=== PATIENT | male | born 2000 | race Two or more races ===

== ENCOUNTER 2021-06-07 00:33 | Emergency (ER) | payer OTHER ==
[~2021-06-07] VITALS: Ht 167.6 cm; Wt 86.2 kg
[2021-06-07 00:47] VITALS: BP 121/61
[2021-06-07] MEDS ORDERED: IBUPROFEN 800 MG TAB PO ONE (01:15)
== END 2021-06-07 01:49 | disposition home or self-care (01) ==
LOC: ER 00:33
DX: L60.0 Ingrowing nail (principal)

== ENCOUNTER 2021-06-14 14:47 | Emergency (ER) | payer OTHER ==
[~2021-06-14] VITALS: Ht 167.6 cm; Wt 86.6 kg
[2021-06-14 16:08] VITALS: BP 122/69
== END 2021-06-14 16:49 | disposition home or self-care (01) ==
LOC: ER 14:47
DX: S63.501A Unspecified sprain of right wrist, initial encounter (principal); W22.01XA Walked into wall, initial encounter; Y93.89 Activity, other specified; Y92.89 Other specified places as the place of occurrence of the external cause; Y99.8 Other external cause status
CPT/HCPCS: 73110

== ENCOUNTER 2021-11-13 23:54 | Emergency (ER) | payer OTHER ==
[~2021-11-13] VITALS: Ht 167.6 cm; Wt 63.5 kg
[2021-11-14 02:03] LABS: Basophils # (auto) 0.1 10 ^3/uL (0-0.2); Basophils % (auto) 0.7 % (0.0-2.0); Eosinophils # (auto) 0.3 10 ^3/uL (0-0.8); Eosinophils % (auto) 2.6 % (0.0-7.0); Hematocrit 43.6 % (41.0-53.0); Hemoglobin 15.2 g/dL (13.5-17.5); Lymphocytes # (auto) 3.5 10 ^3/uL (0.4-5.4); Lymphocytes % (auto) 27.1 % (10.0-50.0); Mean Corpuscular Hemoglobin 30.1 pg (28.0-32.0); Mean Corpuscular Hgb Conc. 34.9 g/dL (32.0-36.0); Mean Corpuscular Volume 86.2 fL (80.0-100.0); Monocytes # (auto) 0.9 10 ^3/uL (0-1.3); Monocytes % (auto) 7.3 % (0.0-12.0); Neutrophils # (auto) 8.1 10 ^3/uL (1.6-8.6); Neutrophils % (auto) 62.3 % (37.0-80.0); Nucleated Red Blood Cells % 0.1 %; Red Blood Cells 5.06 10^6/uL (4.5-5.90); Red Cell Distribution Width 12.7 % (11.8-14.3)
[2021-11-14 02:05] LABS: Urine Bacteria NONE SEEN /hpf (None Seen); Urine Blood Negative /uL (Negative); Urine Mucus FEW (None Seen); Urine Specific Gravity 1.029 (1.001-1.035); Urine WBC 3 /hpf (0 - 3)
[2021-11-14 02:19] LABS: BUN/Creatinine Ratio 10.7; Calcium 9.4 mg/dL (8.5-10.1)
[2021-11-14 02:22] LABS: Bilirubin, Total 0.2 mg/dL (0.2-1.0); Total Protein 8.4 g/dL (6.4-8.2)
[2021-11-14 03:00] VITALS: BP 121/69
== END 2021-11-14 03:55 | disposition home or self-care (01) ==
LOC: ER 23:54
DX: R10.9 Unspecified abdominal pain (principal)
CPT/HCPCS: 36415; 74176; 80053; 81001; 85025

== ENCOUNTER 2023-02-09 14:38 | Emergency (ER) | payer SELFPAY ==
[~2023-02-09] VITALS: Ht 167.6 cm; Wt 88.2 kg
[2023-02-09 15:13] LABS: Basophils # (auto) 0 10 ^3/uL (0-0.2); Basophils % (auto) 0.5 % (0.0-2.0); Eosinophils # (auto) 0.3 10 ^3/uL (0-0.8); Eosinophils % (auto) 2.7 % (0.0-7.0); Hemoglobin 15.4 g/dL (13.5-17.5); Lymphocytes % (auto) 19.4 % (10.0-50.0); Mean Corpuscular Hemoglobin 29.6 pg (28.0-32.0); Mean Corpuscular Hgb Conc. 34.2 g/dL (32.0-36.0); Mean Corpuscular Volume 86.4 fL (80.0-100.0); Monocytes # (auto) 0.7 10 ^3/uL (0-1.3); Monocytes % (auto) 6.9 % (0.0-12.0); Neutrophils # (auto) 7.3 10 ^3/uL (1.6-8.6); Neutrophils % (auto) 70.5 % (37.0-80.0); Nucleated Red Blood Cells % 0.1 %; Red Blood Cells 5.21 10^6/uL (4.5-5.90); Red Cell Distribution Width 13.2 % (11.8-14.3); White Blood Cell 10.3 10^3/uL (4.4-10.8)
[2023-02-09 15:29] LABS: Potassium 3.7 mmol/L (3.5-5.1)
[2023-02-09 15:33] LABS: BUN/Creatinine Ratio 10.6 (10.0-20.0); Bilirubin, Total 0.7 mg/dL (0.2-1.0); Total Protein 8.4 g/dL (6.4-8.2)
[2023-02-09 15:36] LABS: Urine Bacteria NONE SEEN /hpf (None Seen); Urine Blood Negative /uL (Negative); Urine Mucus FEW (None Seen); Urine Specific Gravity 1.023 (1.001-1.035); Urine WBC 5 /hpf (0 - 3)
[2023-02-09] MEDS ORDERED: DICY10CA PO (16:08)
[2023-02-09 17:33] VITALS: BP 120/69; PULSE 59; RESP 18; TEMP 97.8; O2SAT 97
== END 2023-02-09 17:37 | disposition home or self-care (01) ==
LOC: ER 14:38
DX: R10.11 Right upper quadrant pain (principal)
CPT/HCPCS: 36415; 80053; 81001; 83690; 85025

== ENCOUNTER 2023-02-16 08:59 | Emergency (ER) | payer OTHER ==
[~2023-02-16] VITALS: Ht 170.2 cm; Wt 88.3 kg
[~2023-02-16 08:59] MED LIST: DICY10CA PO
[2023-02-16] MEDS ORDERED: SODIUM CHLORIDE 0.9% 1,000 ML IV ONE ×3 (10:00→10:15)
[2023-02-16 10:04] VITALS: PULSE 75; RESP 17; O2SAT 98
[2023-02-16 10:54] LABS: Basophils # (auto) 0.1 10 ^3/uL (0-0.2); Basophils % (auto) 0.6 % (0.0-2.0); Eosinophils # (auto) 0 10 ^3/uL (0-0.8); Eosinophils % (auto) 0.3 % (0.0-7.0); Hematocrit 44.4 % (41.0-53.0); Hemoglobin 15.1 g/dL (13.5-17.5); Lymphocytes # (auto) 0.4 10 ^3/uL (0.4-5.4); Mean Corpuscular Hemoglobin 29.5 pg (28.0-32.0); Mean Corpuscular Hgb Conc. 33.9 g/dL (32.0-36.0); Mean Corpuscular Volume 87.1 fL (80.0-100.0); Monocytes # (auto) 0.4 10 ^3/uL (0-1.3); Monocytes % (auto) 2.7 % (0.0-12.0); Neutrophils % (auto) 93.4 % (37.0-80.0); Nucleated Red Blood Cells % 0.1 %; Red Cell Distribution Width 13.2 % (11.8-14.3)
[2023-02-16 11:11] LABS: Calcium 8.8 mg/dL (8.5-10.1)
[2023-02-16 11:14] LABS: BUN/Creatinine Ratio 11.8 (10.0-20.0); Bilirubin, Total 0.6 mg/dL (0.2-1.0); Total Protein 8.1 g/dL (6.4-8.2)
[2023-02-16] MEDS ORDERED: cefTRIAXone 1GM/50ML D5W 50 ML IV ONE (11:15)
[2023-02-16] MEDS ORDERED: metroNIDAZOLE 500MG/100ML 100 ML IV ONE (11:15)
[2023-02-16 12:28] LABS: Urine Bacteria NONE SEEN /hpf (None Seen); Urine Blood Negative /uL (Negative); Urine Specific Gravity 1.016 (1.001-1.035); Urine WBC 1 /hpf (0 - 3)
[2023-02-16] MEDS ORDERED: METR375C PO (13:54)
[2023-02-16 14:00] VITALS: BP 111/57; PULSE 88; RESP 16; O2SAT 97
== END 2023-02-16 14:23 | disposition home or self-care (01) ==
LOC: ER 08:59
DX: K52.9 Noninfective gastroenteritis and colitis, unspecified (principal); R55 Syncope and collapse
CPT/HCPCS: 36415; 70450; 74176; 80053; 81001; 83690; 84484; 85025; 96361; 96365; 96367; 99285; J0696; J3490; J7030

== ENCOUNTER 2023-10-25 18:34 | Emergency (ER) | payer OTHER ==
[~2023-10-25] VITALS: Ht 167.6 cm; Wt 88.3 kg
[~2023-10-25 18:34] MED LIST changes: +METR375C PO
[2023-10-25 18:49] VITALS: BP 135/70; PULSE 82; RESP 16; O2SAT 100
[2023-10-25] MEDS ORDERED: IBUP-1456 PO (22:36)
== END 2023-10-25 22:42 | disposition home or self-care (01) ==
LOC: ER 18:34
DX: S76.912A Strain of unspecified muscles, fascia and tendons at thigh level, left thigh, initial encounter (principal); X50.1XXA Overexertion from prolonged static or awkward postures, initial encounter; Y93.89 Activity, other specified; Y92.89 Other specified places as the place of occurrence of the external cause; Y99.8 Other external cause status

== ENCOUNTER 2024-01-17 16:21 | Emergency (ER) | payer SELFPAY ==
[~2024-01-17] VITALS: Ht 170.2 cm; Wt 84.1 kg
[~2024-01-17 16:21] MED LIST changes: +IBUP-1456 PO
[2024-01-17 19:26] VITALS: BP 115/66; PULSE 73; RESP 12; TEMP 98; O2SAT 99
== END 2024-01-17 20:40 | disposition home or self-care (01) ==
LOC: ER 16:21
DX: S93.601A Unspecified sprain of right foot, initial encounter (principal); Z79.1 Long term (current) use of non-steroidal anti-inflammatories (NSAID); Z79.84 Long term (current) use of oral hypoglycemic drugs; Z79.899 Other long term (current) drug therapy; W22.8XXA Striking against or struck by other objects, initial encounter; Y93.89 Activity, other specified; Y92.89 Other specified places as the place of occurrence of the external cause; Y99.8 Other external cause status
CPT/HCPCS: 73630

== ENCOUNTER 2024-05-29 09:11 | Emergency (ER) | payer SELFPAY ==
[~2024-05-29] VITALS: Ht 170.2 cm; Wt 85.5 kg
--- NOTE | 2024-05-29 09:41 | ED.PDOC ---
HPI Comments 24Y M presents to ED for chief complaint palpitations with chest pain and headache. Pt states he has experienced these symptoms before after drinking 2 energy drinks. Pt states he drank a boba drink with caffeine last night and is now experiencing the chest pain and palpitations again with a mild headache. Pt drinks alcohol occasionally. Pt denies tobacco and illicit drug use. No known allergies. Chief Complaint: Palpitations Time Seen by MD: 09:24 Primary Care Provider: unknown Reviewed Notes: Medications, Allergies Allergies: Coded Allergies: NO KNOWN ALLERGIES (Unverified , 06/07/21) Home Meds Active Scripts Ibuprofen (Ibuprofen) 800 Mg Tab, 1 TAB PO TID PRN, #30 TAB 0 Refills Prov:YAYA ALEXANDER 01/17/24 Ibuprofen (Ibuprofen) 800 Mg Tab, 1 TAB PO TID PRN, #30 TAB 0 Refills Prov:YAYA ALEXANDER 10/25/23 Metronidazole (Flagyl) 375 Mg Cap, 375 MG PO TID for 7 Days, #21 CAP Prov:LESA SHULTZ MD 02/16/23 Dicyclomine Hcl (BENTYL CAPSULE) 10 Mg Cp, 1 CAP PO Q6HPRN, #30 CAP 3 Refills Prov:MANOJ MCKEON DO 02/09/23 Information Source: Patient Mode of Arrival: Ambulatory Severity: Mild Timing: Days Duration: Intermittent Location: Substernal Radiation: No Radiation Quality: Other Onset: At Rest Cardiac Risk Factors: None PE Risk Factors: None History of: Similar pain in past Modifying Factors: Nothing Associated Signs and Symptoms: Palpitations Past Medical History PAST MEDICAL HISTORY: Gallstones, UTI'S Surgical History: Denies all surgeries Family History Family History: Unknown Social History Smoker: Non-Smoker Alcohol: Occasionally Drugs: Denies Drug Use Lives In: Home Constitutional: denies: chills, diaphoresis, fatigue, fever, malaise, sweats, weakness, others EENTM: denies: blurred vision, double vision, ear bleeding, ear discharge, ear drainage, ear pain, ear ringing, eye pain, eye redness, hearing loss, mouth pain, mouth swelling, nasal discharge, nose bleeding, nose congestion, nose pain, photophobia, tearing, throat pain, throat swelling, voice changes, others Respiratory: denies: cough, hemoptysis, orthopnea, SOB at rest, shortness of breath, SOB with excertion, stridor, wheezing, others Cardiovascular: reports: chest pain, palpitations; denies: dizzy spells, diaph oresis, Dyspnea on exertion, edema, irregular heart beat, left arm pain, lightheadedness, PND, syncope, others Gastrointestinal: denies: abdomen distended, abdominal pain, blood streaked bowels, constipated, diarrhea, dysphagia, difficulty swallowing, hematemesis, melena, nausea, poor appetite, poor fluid intake, rectal bleeding, rectal pain, vomiting, others Genitourinary: denies: burning, dysuria, flank pain, frequency, hematuria, incontinence, penile discharge, penile sore, pain, testicle pain, testicle swelling, urgency, others Neurological: reports: headache; denies: dizziness, fainting, left sided numbness, left sided weakness, numbness, paresthesia, pre-existing deficit, right sided numbness, right sided weakness, seizure, speech problems, tingling, tremors, weakness, others Musculoskeletal: denies: back pain, gout, joint pain, joint swelling, muscle pain, muscle stiffness, neck pain, others Integumetry: denies: bruises, change in color, change in hair/nails, dryness, laceration, lesions, lumps, rash, wounds, others Allergic/Immunocompromised: denies: Difficulty Healing, Frequent Infections, Hives, Itching, others Hematologic/Lymphatic: denies: anemia, blood clots, easy bleeding, easy bruising, swollen glands, others Endocrine: denies: excessive hunger, excessive sweating, excessive thirst, excessive urination, flushing, intolerance to cold, intolerance to heat, unexplained weight gain, unexplained weight loss, others Psychiatric: denies: anxiety, bipolar disorder, depression, hopeless, panic disorder, schizophrenia, sleepless, suicidal, others All Other Systems: Reviewed and Negative Physical Exam General Appearance: Moderate Distress, Normal HEENT: Normal ENT Inspection, Pharynx Normal, TMs Normal Neck: Full Range of Motion, Non-Tender, Normal, Normal Inspection Respiratory: Chest Non-Tender, Lungs Clear, No Accessory Muscle Use, No Respiratory Distress, Normal Breath Sounds Cardiovascular: No Edema, No JVD, No Murmur, No Gallop, Normal Peripheral Pulses, Tachycardia Breast Exam: Deferred Gastrointestinal: No Organomegaly, Non Tender, No Pulsatile Mass, Normal Bowel Sounds, Soft Genitalia: Deferred Pelvic: Deferred Rectal: Deferred Extremities: No calf tenderness, Normal capillary refill, Normal inspection, Normal range of motion, Non-tender, No pedal edema Musculoskeletal : Apperance: Normal Neurologic: Alert, pulverizer feeder II-XII nml as Tested, No Motor Deficits, Normal Affect, Normal Mood, No Sensory Deficits Cerebellar Function: Normal Reflexes: Normal Skin: Dry, Normal Color, Warm Peripheral Pulses: 3+ Radial (R), 3+ Radial (L) Lymphatic: No Adenopathy Was a procedure done? Was a procedure done?: No CP Differential Dx Differential Diagnosis: A-fib, A-Flutter, Angina, Anxiety / Panic Attack, Atrial Dysrhythmia, Electrolyte Disorder X-Ray, Labs, Meds, VS Vital Signs Date Time Temp Pulse Resp B/P (MAP) Pulse Ox O2 Delivery O2 Flow Rate FiO2 05/29/24 09:24 98.5 82 16 132/57 (82) 100 05/29/24 09:21 77 Lab Test 05/29/24 10:04 05/29/24 09:18 Range/Units Troponin I High Sensitivity Pending < 3 L </=54 ng/L Sodium Level 140 136-145 mmol/L Potassium Level 3.8 3.5-5.1 mmol/L Chloride Level 105 98-107 mmol/L Carbon Dioxide Level 29 20-31 mmol/L Anion Gap 6 5-15 Blood Urea Nitrogen 14 9-23 mg/dL Creatinine 0.91 0.700-1.30 mg/dL Glomerular Filtration Rate Calc 121 >90 mL/min BUN/Creatinine Ratio 15.4 10.0-20.0 Serum Glucose 94 74-106 mg/dL Calcium Level 10.6 H 8.7-10.4 mg/dL Patient alert. States that he had energy drink. Symptoms started after his energy drink. Vitals stable. Answering questions. EKG does show sinus tachycardia. Normalized. Abdomen is soft nontender. He states that he is feeling much better pain Saturation pristine on room air. No leg swelling. Respiratory rate within normal limits. EKG reviewed does not show any acute changes. Cardiac marker within normal limits. Reviewed his history. Explained to the patient. Was told to follow up with his primary care physician. Was told to come back if there is any problem. Time of 1ST Reevaluation: 09:54 Reevaluation 1ST: Improved Patient Education/Counseling: Diagnosis, Treatment Family Education/Counseling: No Family Present Departure 1 Departure Time of Disposition: 10:34 Impression: Primary Impression: Use of energy drinks Additional Impression: Palpitation Disposition: 01 HOME / SELF CARE / HOMELESS Condition: Good Discharged With: Self Critical Care Note Critical Care Time?: No Stability Stability form required: No Heart Score Heart Score: Heart Score Response (Comments) Value History Slightly Suspicious 0 EKG Normal 0 Age <45 0 Risk Factors No known risk factors 0 Troponin Normal limit 0 Total 0 I personally scribed for LESA SHULTZ MD ([email or web address]) on 05/29/24 at 09:41. Electronically submitted by Amairani Henry ([email or web address]). LESA SHULTZ MD May 29, 2024 09:41
[2024-05-29 10:25] LABS: Chloride 105 mmol/L (98-107); Potassium 3.8 mmol/L (3.5-5.1); Sodium 140 mmol/L (136-145)
[2024-05-29 10:26] LABS: Anion Gap 6 (5-15); Calcium 10.6 mg/dL (8.7-10.4); Carbon Dioxide 29 mmol/L (20-31)
[2024-05-29 10:31] LABS: BUN/Creatinine Ratio 15.4 (10.0-20.0); Blood Urea Nitrogen 14 mg/dL (9-23); Glucose 94 mg/dL (74-106)
[2024-05-29 12:35] VITALS: BP 125/64; PULSE 77; RESP 16; TEMP 97.8; O2SAT 98
[2024-05-29] MEDS ORDERED: SODIUM CHLORIDE 0.9% 1,000 ML IV ONE (12:45)
--- NOTE | 2024-05-30 07:59 | ECG ---
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
== END 2024-05-29 12:55 | disposition home or self-care (01) ==
LOC: ER 09:11
DX: R00.2 Palpitations (principal); R07.9 Chest pain, unspecified; R51.9 Headache, unspecified; Z87.440 Personal history of urinary (tract) infections; Z98.890 Other specified postprocedural states
CPT/HCPCS: 36415; 80048; 84484; 93005

== ENCOUNTER 2024-09-23 21:03 | Emergency (ER) | payer SELFPAY ==
[~2024-09-23] VITALS: Ht 170.2 cm; Wt 85.8 kg
[2024-09-23 22:47] VITALS: BP 115/68; PULSE 72; RESP 19; TEMP 98.2; O2SAT 100
[2024-09-23] MEDS: KETOROLAC TROMETH 60MG/2ML VIAL IM ONE (23:34)
[2024-09-23] MEDS: DexAMETHasone SOD PHOS 10MG/1ML VIAL INJ IM ONE (23:35)
[2024-09-23] MEDS ORDERED: IBUP-1456 PO (23:50)
[2024-09-23] MEDS ORDERED: TIZA-142 PO (23:50)
--- NOTE | 2024-09-23 23:51 | ED.PDOC ---
HPI (NEURO) HPI Comments PATIENT REPORTS HE HAS HAD A HEADACHE OR A WEEK AND BELIEVES IT IS ME. PATIENT ALSO REPORTS THE STRESS HAS GIVEN HIM CHEST TIGHTNESS. 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 PAIN IS REPRODUCIBLE AND CHEST. DENIES NUMBNESS, WEAKNESS, DIFFICULTY BREATHING, SHORTNESS OF BREATH, NAUSEA, VOMITING, VISION CHANGES, OR ANY FOCAL NEURO DEFICITS Chief Complaint: Headache Time Seen by MD: 21:08 Primary Care Provider: UNKNOWN Reviewed Notes: Nurses Notes, Medications, Allergies Information Source: Patient Mode of Arrival: Ambulatory Past Medical History PAST MEDICAL HISTORY: Gallstones, UTI'S Surgical History: Denies all surgeries Family History Family History: Unknown Social History Smoker: Non-Smoker Alcohol: Occasionally Drugs: Denies Drug Use Lives In: Home Constitutional: denies: chills, diaphoresis, fatigue, fever, malaise, sweats, weakness, others EENTM: denies: blurred vision, double vision, ear bleeding, ear discharge, ear drainage, ear pain, ear ringing, eye pain, eye redness, hearing loss, mouth pain, mouth swelling, nasal discharge, nose bleeding, nose congestion, nose pain, photophobia, tearing, throat pain, throat swelling, voice changes, others Respiratory: denies: cough, hemoptysis, orthopnea, SOB at rest, shortness of breath, SOB with excertion, stridor, wheezing, others Cardiovascular: reports: chest pain; denies: dizzy spells, diaphoresis, Dyspnea on exertion, edema, irregular heart beat, left arm pain, lightheadedness, palpitations, PND, syncope, others Gastrointestinal: denies: abdomen distended, abdominal pain, blood streaked bowels, constipated, diarrhea, dysphagia, difficulty swallowing, hematemesis, melena, nausea, poor appetite, poor fluid intake, rectal bleeding, rectal pain, vomiting, others Genitourinary: denies: burning, dysuria, flank pain, frequency, hematuria, incontinence, penile discharge, penile sore, pain, testicle pain, testicle swelling, urgency, others Neurological: reports: headache; denies: dizziness, fainting, left sided numbness, left sided weakness, numbness, paresthesia, pre-existing deficit, right sided numbness, right sided weakness, seizure, speech problems, tingling, tremors, weakness, others Musculoskeletal: denies: back pain, gout, joint pain, joint swelling, muscle pain, muscle stiffness, neck pain, others Integumetry: denies: bruises, change in color, change in hair/nails, dryness, laceration, lesions, lumps, rash, wounds, others Allergic/Immunocompromised: denies: Difficulty Healing, Frequent Infections, Hives, Itching, others Hematologic/Lymphatic: denies: anemia, blood clots, easy bleeding, easy bruising, swollen glands, others Endocrine: denies: excessive hunger, excessive sweating, excessive thirst, excessive urination, flushing, intolerance to cold, intolerance to heat, unexplained weight gain, unexplained weight loss, others Psychiatric: denies: anxiety, bipolar disorder, depression, hopeless, panic disorder, schizophrenia, sleepless, suicidal, others Physical Exam General Appearance: No Apparent Distress, Normal HEENT: Normal ENT Inspection, Pharynx Normal, TMs Normal Neck: Full Range of Motion, Non-Tender Respiratory: Lungs Clear, No Accessory Muscle Use, No Respiratory Distress, Normal Breath Sounds, Other (LEFT CHEST OVER MUSCLES TENDER ON PALPATION AND MOV EMENT) Cardiovascular: No Edema, No JVD, No Murmur, No Gallop, Normal Peripheral Pulses, Regular Rate/Rhythm Breast Exam: Deferred Gastrointestinal: No Organomegaly, Non Tender, No Pulsatile Mass, Normal Bowel Sounds, Soft Genitalia: Deferred Pelvic: Deferred Rectal: Deferred Extremities: Normal capillary refill, Normal inspection, Normal range of motion, Non-tender, No pedal edema Musculoskeletal : Apperance: Normal Neurologic: Alert, payroll and benefits specialist II-XII nml as Tested, No Motor Deficits, Normal Affect, Normal Mood, No Sensory Deficits Cerebellar Function: Normal Reflexes: Normal Skin: Dry, Normal Color, Warm Lymphatic: No Adenopathy Was a procedure done? Was a procedure done?: No Differential Diagnosis (SZ) Headache: Migraine, Intracerebral Hemorrhage, Subarachnoid Hemorrhage, Subdural Hemorrhage, Sinusitis X-Ray, Labs, Meds, VS Vital Signs Date Time Temp Pulse Resp B/P (MAP) Pulse Ox O2 Delivery O2 Flow Rate FiO2 09/23/24 22:47 72 19 100 Room Air 09/23/24 22:47 98.2 72 19 115/68 (84) 100 98.2 09/23/24 21:52 73 09/23/24 21:44 98.2 80 18 110/59 (76) 100 Current Medications Medications (Trade) Dose Ordered Sig/Wendi Route Start Time Stop Time Status Last Admin Ketorolac Tromethamine (Toradol Injection) 60 mg ONCE ONCE IM 09/23/24 23:30 09/23/24 23:31 DC 09/23/24 23:34 Dexamethasone Sodium Phosphate (Decadron Injection) 10 mg ONCE ONCE IM 09/23/24 23:30 09/23/24 23:31 DC 09/23/24 23:35 X-Ray, Labs, Meds, VS Comment LIKELY MUSCULATURE IN NATURE. PAIN REPRODUCIBLE. 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 FLUIDS WITH ELECTROLYTES, FOLLOW UP WITH PCP IN 1-2 DAYS, TAKE MEDICATIONS PRESCRIBED, ER RETURN PRECAUTIONS GIVEN PATIENT INDICATES UNDERSTANDING AGREES WITH DISCHARGE PLAN OF CARE Time of 1ST Reevaluation: 23:48 Reevaluation 1ST: Improved Patient Education/Counseling: Diagnosis, Treatment, Prognosis, Need For Follow Up Family Education/Counseling: No Family Present Departure 1 Departure Time of Disposition: 23:49 Impression: Primary Impression: Chest wall pain Additional Impression: Headache Qualified Codes: G44.201 - Tension-type headache, unspecified, intractable Disposition: 01 HOME / SELF CARE / HOMELESS Condition: Stable e-Prescriptions Ibuprofen (Ibuprofen) 800 Mg Tab 1 TAB PO TID PRN for 5 Days, #15 TAB Prov: ELIE PETERSEN 09/23/24 Tizanidine Hydrochloride (Tizanidine Hcl) 4 Mg Tab 4 MG PO BID PRN for 6 Days, #12 TAB Prov: ELIE PETERSEN 09/23/24 Discharged With: Self Critical Care Note Critical Care Time?: No Stability Stability form required: ELIE Ceballos Sep 23, 2024 23:51
== END 2024-09-23 23:56 | disposition home or self-care (01) ==
LOC: ER 21:03
DX: R07.89 Other chest pain (principal); R51.9 Headache, unspecified; Z87.440 Personal history of urinary (tract) infections
CPT/HCPCS: 96372; 99284; J1100; J1885